=== PATIENT | female | born 1950 | race Caucasian/White ===

== ENCOUNTER 2018-11-08 07:18 | Emergency (ER) | payer MEDICARE ==
--- NOTE | 2018-11-08 07:52 | ED ---
Skin Complaint - HPI Summary HPI Summary: Pt. is a 68 y.o female who presents to the ER for rash to face x 2 days. Pt. states 2 days ago she was pulling weeds and believes weeds brushed across her face. She states she showered after but shortly developed a pruritic rash to face and around eyes. Pt. states she has had similar skin reactions in the past. Pt. states she has been taking benadryl and putting hydrocortisone on rash which pt. states does improve rash and itching. Pt. denies SOB, CP, mouth or throat swelling. Pt. otherwise denies any new medications or ingestions. Sxs are mild in severity. No past medical hx. No current modifying factors. - History of Current Complaint Chief Complaint: EDAllergicReaction Time Seen by Provider: 11/08/18 07:34 Stated Complaint: ALLERGIC REACTION PER PT Hx Obtained From: Patient Pain Intensity: 0 - Allergy/Home Medications Allergies/Adverse Reactions: Allergies Allergy/AdvReac Type Severity Reaction Status Date / Time No Known Allergies Allergy Verified 11/08/18 07:23 Home Medications: Home Medications Estradiol 1 tab VAGINAL WEEKLY 11/08/18 [History Confirmed 11/08/18] [place]-3 Fatty Acids/Fish Oil [Fish Oil 1,000 mg Softgel] 1 each PO BEDTIME 11/08 [History Confirmed 11/08/18] PMH/Surg Hx/FS Hx/Imm Hx Previously Healthy: Yes Musculoskeletal History: Denies: Hx Osteoporosis - Cancer History Hx Chemotherapy: No Hx Radiation Therapy: No Infectious Disease History: No Infectious Disease History: Denies: Traveled Outside the [place] in Last 30 Days - Family History Known Family History: Positive: Non-Contributory - Social History Occupation: Retired Lives: With Family Alcohol Use: None Substance Use Type: Reports: None Smoking Status (MU): Never Smoked Tobacco Review of Systems Constitutional: Negative Negative: Fever, Chills Eyes: Negative ENT: Negative Cardiovascular: Negative Negative: Palpitations Respiratory: Negative Negative: Shortness Of Breath Positive: Other - Rash and swelling to face Neurological: Negative All Other Systems Reviewed And Are Negative: Yes Physical Exam Triage Information Reviewed: Yes Vital Signs On Initial Exam: Initial Vitals Temp Pulse Resp BP Pulse Ox 98.3 F 67 16 163/97 98 11/08/18 07:20 11/08/18 07:20 11/08/18 07:20 11/08/18 07:20 11/08/18 07:20 Vital Signs Reviewed: Yes Appearance: Positive: Well-Appearing - Pt. sitting on bed in NAD. Pleasant. Skin: Positive: Warm, Dry, Other - Noted to around and just below eyes skin is mildly puffy and erythematous. No vesicles or blisters. Negative nikolsky sign. Head/Face: Positive: Normal Head/Face Inspection - As noted above. Eyes: Positive: Normal, EOMI - without pain, SPENCER ENT: Positive: Other - Oral pharynx patent without erythema or edema. No mouth or tongue edema. Neck: Positive: Supple Respiratory/Lung Sounds: Positive: Clear to Auscultation, Breath Sounds Present. Negative: Wheezes Musculoskeletal: Positive: Normal, Strength/ROM Intact Neurological: Positive: Normal, CN Intact II-III Psychiatric: Positive: Affect/Mood Appropriate Diagnostics - Vital Signs Vital Signs Temp Pulse Resp BP Pulse Ox 11/08/18 07:20 98.3 F 67 16 163/97 98 - Laboratory Lab Statement: Any lab studies that have been ordered have been reviewed, and results considered in the medical decision making process. Course/Dx - Course Course Of Treatment: Pt. presenting for a contact dermatitis to her face after pulling weeds. No signs of anaphylaxis. Will place on a short course of prednisone. Advised to continue benadryl or a second generation antihistamine. To avoid allergen. Cool compress. Close fu with PCP and return to ER if sxs change or worsen. Pt. understands and agrees with plan. - Differential Diagnoses - Skin Complaint Differential Diagnoses: Abscess, Anaphylaxis, Angioedema, Cellulitis, Contact Dermatitis, Eczema, Urticaria - Diagnoses Provider Diagnoses: Contact dermatitis Discharge - Sign-Out/Discharge Documenting (check all that apply): Patient Departure Patient Received Moderate/Deep Sedation with Procedure: No - Discharge Plan Condition: Good Disposition: HOME Prescriptions: predniSONE TAB* [Deltasone 20 MG TAB*] 20 mg PO DAILY #10 tab Patient Education Materials: Contact Dermatitis (ED) Referrals: Kaila Garza MD [Primary Care Provider] - Additional Instructions: Follow up with your PCP Prednisone as directed Continue benadryl as directed or can take an over the counter nondrowsy antihistamine such as Zyrtec, Nova, ect. Avoid repeat contact to known allergens Return to ER if symptoms change or worsen - Billing Disposition and Condition Condition: GOOD Disposition: Home
--- NOTE | 2018-11-08 07:58 | ED ---
Allergic Reaction/Systemic - History of Current Complaint Chief Complaint: EDAllergicReaction Pain Intensity: 0 - Allergies/Home Medications Allergies/Adverse Reactions: Allergies Allergy/AdvReac Type Severity Reaction Status Date / Time No Known Allergies Allergy Verified 11/08/18 07:23 PMH/Surg Hx/FS Hx/Imm Hx Musculoskeletal History: Denies: Hx Osteoporosis - Cancer History Hx Chemotherapy: No Hx Radiation Therapy: No Infectious Disease History: No Infectious Disease History: Denies: Traveled Outside the [place] in Last 30 Days Physical Exam Vital Signs On Initial Exam: Initial Vitals Temp Pulse Resp BP Pulse Ox 98.3 F 67 16 163/97 98 11/08/18 07:20 11/08/18 07:20 11/08/18 07:20 11/08/18 07:20 11/08/18 07:20 Diagnostics - Vital Signs Vital Signs Temp Pulse Resp BP Pulse Ox 11/08/18 07:20 98.3 F 67 16 163/97 98 - Laboratory Lab Statement: Any lab studies that have been ordered have been reviewed, and results considered in the medical decision making process. Discharge - Discharge Plan Referrals: Kaila Garza MD [Primary Care Provider] - - Attestation Statements Document Initiated by Scribe: Yes
[2018-11-08 08:08] VITALS: BP 140/84
== END 2018-11-08 08:06 | disposition home or self-care (01) ==
LOC: ED 07:18
DX: L25.5 Unspecified contact dermatitis due to plants, except food (principal)
CPT/HCPCS: 99282